=== PATIENT | female | born 1975 | race Two or more races ===

== ENCOUNTER 2023-07-22 15:29 | Emergency (ER) | payer MEDICAID ==
[~2023-07-22] VITALS: Ht 162.6 cm; Wt 72.6 kg
[2023-07-22 15:39] VITALS: BP 147/92; PULSE 107; RESP 18; TEMP 98.2; O2SAT 100
[2023-07-22 16:14] LABS: BILIRUBIN,URINE NEGATIVE (NEGATIVE); BLOOD, URINE TRACE-I (NEGATIVE); LEUKOCYTE ESTERASE ,URINE NEGATIVE (NEGATIVE); NITRITE, URINE NEGATIVE (NEGATIVE); PROTEIN,URINE 1+ (NEGATIVE); UGLUCOSE NEGATIVE (NEGATIVE); UROBILINOGEN,URINE 0.2 EU/dL (0.2 - 1)
[2023-07-22 16:15] LABS: APPEARANCE,URINE SLIGHTLY HAZY (CLEAR); COLOR,URINE YELLOW (YELLOW)
[2023-07-22 16:18] LABS: RBC,URINE 20-50 /HPF (0-5)
[2023-07-22 16:19] LABS: BACTERIA,URINE 2+ /HPF (None Seen); MUCUS,URINE 1+ /LPF (None Seen); TRICHOMONAS,URINE None Seen /HPF (None Seen); YEAST,URINE None Seen /HPF (None Seen)
[2023-07-22 16:33] LABS: BASOPHILS % (AUTO) 0.7 % (0.0-2.0); EOSINOPHILS # (AUTO) 0.1 K/uL (0-0.4); EOSINOPHILS % (AUTO) 1.3 % (0.0-4.0); HEMATOCRIT 32.4 % (36-48); HEMOGLOBIN 10.5 g/dL (12.0-16.0); LYMPHOCYTES # (AUTO) 1.4 K/uL (2.5-16.5); LYMPHOCYTES % (AUTO) 23.6 % (20.5-51.1); MEAN CORPUSCULAR HEMOGLOBIN 26 pg (27-31); MEAN CORPUSCULAR HGB CONC 32 g/dL (33-37); MONOCYTES # (AUTO) 0.4 K/uL (0.8-1.0); NEUTROPHILS # (AUTO) 4.1 K/uL (1.8-7.7); NEUTROPHILS % (AUTO) 67.4 % (42.2-75.2); PLATELET COUNT (AUTO) 291 K/uL (140-450); RED CELL DISTRIBUTION WIDTH 15.7 % (11.6-13.7)
[2023-07-22 16:39] LABS: CALCIUM 9.3 mg/dL (8.5-10.1)
[2023-07-22] MEDS ORDERED: cefTRIAXone 1,000 MG VIAL ONE (17:12)
[2023-07-22] MEDS: ACETAMINOPHEN EXTRA STRENGTH 500 MG TAB PO ONE (17:18)
[2023-07-22 17:21] VITALS: BP 142/91; PULSE 96; RESP 18; O2SAT 98
[2023-07-22] MEDS ORDERED: ACET-10509 PO (17:57)
[2023-07-22] MEDS ORDERED: CEPH-588 PO (17:57)
== END 2023-07-22 18:10 | disposition home or self-care (01) ==
LOC: MED 15:29
DX: N39.0 Urinary tract infection, site not specified (principal); Z98.890 Other specified postprocedural states; Z79.899 Other long term (current) drug therapy
CPT/HCPCS: 36415; 80048; 81001; 81025; 85025; 87086; 96365; 99284; J0696

== ENCOUNTER 2023-08-29 18:37 | Emergency (ER) | payer MEDICAID ==
[~2023-08-29] VITALS: Ht 162.6 cm; Wt 77.1 kg
[~2023-08-29 18:37] MED LIST: ACET-10509 PO; CEPH-588 PO
[2023-08-29 18:39] VITALS: BP 170/112; PULSE 94; RESP 18; TEMP 98; O2SAT 98
[2023-08-29 20:14] VITALS: O2SAT 98
[2023-08-29] MEDS ORDERED: AMOX1TAB8 PO (21:13)
[2023-08-29] MEDS ORDERED: LORA1T1237 PO (21:13)
[2023-08-29] MEDS ORDERED: KETOROLAC 30 MG/ML VIAL ONE (21:14)
[2023-08-29] MEDS ORDERED: PSEUDOEPHEDRINE 30 MG TAB ONE (21:14)
[2023-08-29] MEDS: PSEUDOEPHEDRINE 30 MG TAB PO ONE (21:17)
[2023-08-29] MEDS: KETOROLAC 30 MG/ML VIAL IM ONE (21:17)
[2023-08-29 21:30] VITALS: BP 156/75; PULSE 90; RESP 18; TEMP 98.5; O2SAT 98
== END 2023-08-29 21:30 | disposition home or self-care (01) ==
LOC: MED 18:37
DX: H66.91 Otitis media, unspecified, right ear (principal); N28.9 Disorder of kidney and ureter, unspecified; Z79.899 Other long term (current) drug therapy; Z88.2 Allergy status to sulfonamides; Z91.018 Allergy to other foods
CPT/HCPCS: 96372; 99283; J1885

== ENCOUNTER 2023-11-06 17:18 | Emergency (ER) | payer MEDICAID ==
[~2023-11-06] VITALS: Ht 165.1 cm; Wt 78.2 kg
[~2023-11-06 17:18] MED LIST changes: -ACET-10509 PO; +ACET500T99 PO; +AMOX1TAB8 PO; +LORA1T1237 PO
[2023-11-06 17:42] VITALS: BP 152/108; PULSE 110; RESP 19; O2SAT 99
[2023-11-06] MEDS ORDERED: PHEN-1877 PO (18:17)
[2023-11-06] MEDS ORDERED: CEPH-588 PO (18:17)
[2023-11-06 19:29] VITALS: BP 146/92; PULSE 81; RESP 20; TEMP 98.1; O2SAT 100
[2023-11-06 19:33] LABS: APPEARANCE,URINE SLIGHTLY HAZY (CLEAR); BILIRUBIN,URINE NEGATIVE (NEGATIVE); BLOOD, URINE NEGATIVE (NEGATIVE); COLOR,URINE YELLOW (YELLOW); LEUKOCYTE ESTERASE ,URINE 1+ (NEGATIVE); NITRITE, URINE NEGATIVE (NEGATIVE); PROTEIN,URINE TRACE (NEGATIVE); UGLUCOSE NEGATIVE (NEGATIVE); UROBILINOGEN,URINE 0.2 EU/dL (0.2 - 1)
[2023-11-06 19:45] LABS: BACTERIA,URINE 3+ /HPF (None Seen); SQUAMOUS EPITHELIAL CELL,UR 80-100 /LPF (0-3 (FEW))
[2023-11-06] MEDS: KETOROLAC 30 MG/ML VIAL IM ONE (19:45)
[2023-11-06 19:46] LABS: MUCUS,URINE 4+ /LPF (None Seen)
== END 2023-11-06 20:10 | disposition home or self-care (01) ==
LOC: MED 17:18
DX: N39.0 Urinary tract infection, site not specified (principal); Z85.41 Personal history of malignant neoplasm of cervix uteri; Z98.890 Other specified postprocedural states; Z79.899 Other long term (current) drug therapy
CPT/HCPCS: 81001; 81025; 87086; 96372; 99283; J1885